=== PATIENT | male | born 1965 | race African-American/Black ===

== ENCOUNTER 2020-02-21 17:13 | Emergency (ER) | payer MEDICAID ==
[~2020-02-21] VITALS: Ht 177.8 cm; Wt 75.0 kg
[2020-02-21] MEDS ORDERED: ACETAMINOPHEN 325MG TABLET PO ONE (18:45)
[2020-02-21 19:34] LABS: BASOPHILS % 0.2 % (0.0-2.0); HEMATOCRIT. 37.2 % (42.0-52.0); HEMOGLOBIN. 12.7 g/dL (14.0-18.0); MEAN CORPUSCULAR VOLUME 96.7 fL (80.0-94.0); MEAN PLATELET VOLUME 6.6 fl (7.4-10.4); MONOCYTES % 11.1 % (2.0-8.0); NEUTROPHILS % 35.7 % (40.0-76.0); PLATELET 167 x1000/uL (130-400); RED BLOOD CELL COUNT 3.85 mill/uL (4.7-6.1); RED CELL DISTRIBUTION WIDTH 12.3 % (11.6-14.6)
[2020-02-21 19:39] LABS: CHLORIDE 105 mEq/L (98-107)
[2020-02-21 19:46] LABS: ETHANOL BLOOD < 10 mg/dL
[2020-02-21] MEDS ORDERED: OLANZAPINE 5MG TABLET PO STA (23:00)
[2020-02-21 23:35] LABS: CLARITY URINE CLEAR (CLEAR); COLOR URINE DARK YELLOW (YELLOW); KETONES URINE TRACE (NEGATIVE); LEUKOCYTE ESTERASE URINE 1+ (NEGATIVE); NITRITE URINE NEGATIVE (NEGATIVE); OCCULT BLOOD URINE NEGATIVE (NEGATIVE); PH URINE 5.5 (4.5-8.0); PROTEIN URINE TRACE (NEGATIVE); SPECIFIC GRAVITY URINE 1.028 (1.005-1.030)
[2020-02-21 23:43] LABS: *AMPHETAMINES SCREEN URINE PRESUMTIVE POSITIVE (NEGATIVE); *BARBITURATES SCREEN URINE NEGATIVE (NEGATIVE); *BENZODIAZEPINES SCREEN URINE NEGATIVE (NEGATIVE)
[2020-02-21 23:44] LABS: *COCAINE SCREEN URINE PRESUMTIVE POSITIVE (NEGATIVE); CANNABINOID URINE SCREEN NEGATIVE (NEGATIVE); METHADONE URINE SCREEN NEGATIVE (NEGATIVE); OPIATES URINE SCREEN NEGATIVE (NEGATIVE)
[2020-02-21 23:45] LABS: PHENCYCLIDINE URINE SCREEN NEGATIVE (NEGATIVE)
[2020-02-23] MEDS: OLANZAPINE 5MG TABLET PO SCH ×3 (09:28→21:00)
[2020-02-23] MEDS ORDERED: ACETAMINOPHEN 325MG TABLET PO ONE (10:00)
[2020-02-24 08:59] VITALS: BP 111/55
[2020-02-24] MEDS: OLANZAPINE 5MG TABLET PO SCH (09:00)
== END 2020-02-24 09:06 | disposition home or self-care (01) ==
LOC: ER 17:13
DX: R45.851 Suicidal ideations (principal); Z20.822 Contact with and (suspected) exposure to COVID-19
CPT/HCPCS: 36415; 80048; 80305; 80307; 80320; 80329; 81003; 85025; 87426; 99285; G0480

== ENCOUNTER 2020-07-08 22:35 | Emergency (ER) | payer MEDICAID ==
[~2020-07-08] VITALS: Ht 180.3 cm; Wt 81.0 kg
[2020-07-08 23:34] LABS: BASOPHILS % 0.3 % (0.0-2.0); EOSINOPHILS % 0.8 % (0.0-5.0); HEMATOCRIT. 36.6 % (42.0-52.0); HEMOGLOBIN. 12.7 g/dL (14.0-18.0); LYMPHOCYTES % 36.5 % (20.0-50.0); MEAN CORPUSCULAR HEMOGLOBIN 33.3 pg (28.0-32.0); MEAN CORPUSCULAR VOLUME 96.1 fL (80.0-94.0); MEAN PLATELET VOLUME 6.9 fl (7.4-10.4); NEUTROPHILS % 53.4 % (40.0-76.0); PLATELET 213 x1000/uL (130-400); RED BLOOD CELL COUNT 3.81 mill/uL (4.7-6.1); RED CELL DISTRIBUTION WIDTH 13.2 % (11.6-14.6)
[2020-07-08 23:40] LABS: CHLORIDE 104 mEq/L (98-107)
[2020-07-08 23:43] LABS: ETHANOL BLOOD < 10 mg/dL
[2020-07-08 23:45] LABS: CLARITY URINE CLEAR (CLEAR); COLOR URINE DARK YELLOW (YELLOW); KETONES URINE TRACE (NEGATIVE); LEUKOCYTE ESTERASE URINE TRACE (NEGATIVE); NITRITE URINE NEGATIVE (NEGATIVE); OCCULT BLOOD URINE NEGATIVE (NEGATIVE); PH URINE 5.5 (4.5-8.0); PROTEIN URINE 1+ (NEGATIVE); SPECIFIC GRAVITY URINE 1.036 (1.005-1.030)
[2020-07-08 23:56] LABS: *BENZODIAZEPINES SCREEN URINE NEGATIVE (NEGATIVE); *COCAINE SCREEN URINE NEGATIVE (NEGATIVE); METHADONE URINE SCREEN NEGATIVE (NEGATIVE)
[2020-07-08 23:57] LABS: *AMPHETAMINES SCREEN URINE PRESUMTIVE POSITIVE (NEGATIVE); *BARBITURATES SCREEN URINE NEGATIVE (NEGATIVE); CANNABINOID URINE SCREEN NEGATIVE (NEGATIVE); OPIATES URINE SCREEN PRESUMTIVE POSITIVE (NEGATIVE); PHENCYCLIDINE URINE SCREEN NEGATIVE (NEGATIVE)
[2020-07-09 03:44] VITALS: BP 104/68
== END 2020-07-09 06:09 | disposition home or self-care (01) ==
LOC: ER 22:49
DX: F43.21 Adjustment disorder with depressed mood (principal); R45.851 Suicidal ideations; G89.21 Chronic pain due to trauma; M54.2 Cervicalgia; F15.10 Other stimulant abuse, uncomplicated; Z87.828 Personal history of other (healed) physical injury and trauma
CPT/HCPCS: 36415; 80053; 80305; 80307; 80320; 80329; 81003; 85025; 99283; G0480

== ENCOUNTER 2020-11-30 01:16 | Emergency (ER) | payer MEDICAID ==
[~2020-11-30] VITALS: Ht 177.8 cm; Wt 81.0 kg
[2020-11-30 02:31] LABS: BASOPHILS % 0.3 % (0.0-2.0); EOSINOPHILS % 1.6 % (0.0-5.0); HEMATOCRIT. 35.2 % (42.0-52.0); HEMOGLOBIN. 11.9 g/dL (14.0-18.0); LYMPHOCYTES % 55.5 % (20.0-50.0); MEAN CORPUSCULAR HEMOGLOBIN 32.9 pg (28.0-32.0); MEAN CORPUSCULAR VOLUME 97.4 fL (80.0-94.0); MEAN PLATELET VOLUME 6.5 fl (7.4-10.4); MONOCYTES % 11.8 % (2.0-8.0); NEUTROPHILS % 30.8 % (40.0-76.0); PLATELET 196 x1000/uL (130-400); RED BLOOD CELL COUNT 3.61 mill/uL (4.7-6.1)
[2020-11-30 02:43] LABS: CHLORIDE 108 mEq/L (98-107)
[2020-11-30 02:47] LABS: ETHANOL BLOOD < 10 mg/dL
[2020-11-30 02:51] LABS: *COCAINE SCREEN URINE NEGATIVE (NEGATIVE)
[2020-11-30 02:52] LABS: *AMPHETAMINES SCREEN URINE PRESUMTIVE POSITIVE (NEGATIVE); *BARBITURATES SCREEN URINE NEGATIVE (NEGATIVE); METHADONE URINE SCREEN NEGATIVE (NEGATIVE); OPIATES URINE SCREEN NEGATIVE (NEGATIVE); PHENCYCLIDINE URINE SCREEN NEGATIVE (NEGATIVE)
[2020-11-30 02:53] LABS: *BENZODIAZEPINES SCREEN URINE NEGATIVE (NEGATIVE); CANNABINOID URINE SCREEN NEGATIVE (NEGATIVE)
[2020-11-30 02:55] LABS: CLARITY URINE CLEAR (CLEAR); COLOR URINE YELLOW (YELLOW); PROTEIN URINE TRACE (NEGATIVE)
[2020-11-30 02:56] LABS: KETONES URINE TRACE (NEGATIVE); LEUKOCYTE ESTERASE URINE NEGATIVE (NEGATIVE); NITRITE URINE NEGATIVE (NEGATIVE); OCCULT BLOOD URINE NEGATIVE (NEGATIVE)
[2020-12-01 11:59] VITALS: BP 130/83
== END 2020-12-01 12:35 | disposition home or self-care (01) ==
LOC: ER 01:16
DX: R45.851 Suicidal ideations (principal); R50.9 Fever, unspecified; F17.290 Nicotine dependence, other tobacco product, uncomplicated; F15.10 Other stimulant abuse, uncomplicated; F31.9 Bipolar disorder, unspecified; F20.9 Schizophrenia, unspecified; Z20.822 Contact with and (suspected) exposure to COVID-19
CPT/HCPCS: 36415; 71045; 80053; 80305; 80307; 80320; 80329; 81003; 83690; 85025; 87426; 99285; C9803; U0003; U0005; G0480

== ENCOUNTER 2021-01-09 02:14 | Emergency (ER) | payer MEDICAID ==
[~2021-01-09] VITALS: Ht 180.3 cm; Wt 82.0 kg
[2021-01-09 04:16] LABS: CLARITY URINE CLEAR (CLEAR); COLOR URINE YELLOW (YELLOW); KETONES URINE NEGATIVE (NEGATIVE); LEUKOCYTE ESTERASE URINE TRACE (NEGATIVE); NITRITE URINE NEGATIVE (NEGATIVE); OCCULT BLOOD URINE NEGATIVE (NEGATIVE); PH URINE 5.5 (4.5-8.0); PROTEIN URINE NEGATIVE (NEGATIVE); SPECIFIC GRAVITY URINE 1.017 (1.005-1.030)
[2021-01-09 04:29] LABS: *AMPHETAMINES SCREEN URINE PRESUMTIVE POSITIVE (NEGATIVE); *BARBITURATES SCREEN URINE NEGATIVE (NEGATIVE); *BENZODIAZEPINES SCREEN URINE NEGATIVE (NEGATIVE)
[2021-01-09 04:30] LABS: *COCAINE SCREEN URINE NEGATIVE (NEGATIVE); CANNABINOID URINE SCREEN NEGATIVE (NEGATIVE); METHADONE URINE SCREEN NEGATIVE (NEGATIVE); OPIATES URINE SCREEN NEGATIVE (NEGATIVE); PHENCYCLIDINE URINE SCREEN NEGATIVE (NEGATIVE)
[2021-01-09 04:49] LABS: BASOPHILS % 0.3 % (0.0-2.0); EOSINOPHILS % 1.1 % (0.0-5.0); HEMATOCRIT. 36.3 % (42.0-52.0); HEMOGLOBIN. 12.1 g/dL (14.0-18.0); LYMPHOCYTES % 59.1 % (20.0-50.0); MEAN CORPUSCULAR HEMOGLOBIN 33.1 pg (28.0-32.0); MEAN CORPUSCULAR VOLUME 98.7 fL (80.0-94.0); MEAN PLATELET VOLUME 6.9 fl (7.4-10.4); MONOCYTES % 7.8 % (2.0-8.0); NEUTROPHILS % 31.7 % (40.0-76.0); PLATELET 189 x1000/uL (130-400); RED BLOOD CELL COUNT 3.67 mill/uL (4.7-6.1); RED CELL DISTRIBUTION WIDTH 13.8 % (11.6-14.6)
[2021-01-09 04:55] LABS: CHLORIDE 105 mEq/L (98-107)
[2021-01-09 04:59] LABS: ETHANOL BLOOD < 10 mg/dL
[2021-01-09 14:39] VITALS: BP 133/85
== END 2021-01-09 14:50 | disposition home or self-care (01) ==
LOC: ER 02:14
DX: T43.621A Poisoning by amphetamines, accidental (unintentional), initial encounter (principal); R45.851 Suicidal ideations; F20.9 Schizophrenia, unspecified; R45.850 Homicidal ideations; I10 Essential (primary) hypertension; F15.10 Other stimulant abuse, uncomplicated; H54.7 Unspecified visual loss; R74.01 Elevation of levels of liver transaminase levels; Z98.890 Other specified postprocedural states; Z86.19 Personal history of other infectious and parasitic diseases; Y92.488 Other paved roadways as the place of occurrence of the external cause
CPT/HCPCS: 36415; 80053; 80305; 80307; 80320; 80329; 81003; 85025; 99285; G0480

== ENCOUNTER 2021-02-23 00:29 | Emergency (ER) | payer MEDICAID ==
[~2021-02-23] VITALS: Ht 180.3 cm; Wt 81.4 kg
[2021-02-23 04:00] VITALS: BP 108/69
[2021-02-23 04:34] LABS: BASOPHILS % 0.3 % (0.0-2.0); EOSINOPHILS % 2.1 % (0.0-5.0); HEMATOCRIT. 33.2 % (42.0-52.0); HEMOGLOBIN. 11.4 g/dL (14.0-18.0); LYMPHOCYTES % 55.7 % (20.0-50.0); MEAN CORPUSCULAR HEMOGLOBIN 33.4 pg (28.0-32.0); MEAN CORPUSCULAR VOLUME 97.2 fL (80.0-94.0); MEAN PLATELET VOLUME 6.5 fl (7.4-10.4); MONOCYTES % 13.4 % (2.0-8.0); NEUTROPHILS % 28.5 % (40.0-76.0); PLATELET 286 x1000/uL (130-400); RED BLOOD CELL COUNT 3.42 mill/uL (4.7-6.1); RED CELL DISTRIBUTION WIDTH 12.8 % (11.6-14.6)
[2021-02-23 04:44] LABS: CHLORIDE 110 mEq/L (98-107)
[2021-02-23 04:47] LABS: ETHANOL BLOOD < 10 mg/dL
== END 2021-02-23 07:15 | disposition left against medical advice (07) ==
LOC: ER 00:29
DX: R45.851 Suicidal ideations (principal); F15.10 Other stimulant abuse, uncomplicated; I10 Essential (primary) hypertension; Z20.822 Contact with and (suspected) exposure to COVID-19; Z86.59 Personal history of other mental and behavioral disorders
CPT/HCPCS: 36415; 80053; 80307; 80320; 80329; 85025; 87426; 99283; G0480

== ENCOUNTER 2021-05-13 09:27 | Emergency (ER) | payer MEDICAID ==
[~2021-05-13] VITALS: Ht 177.8 cm; Wt 80.0 kg
[2021-05-13 09:59] LABS: BASOPHILS % 0.2 % (0.0-2.0); EOSINOPHILS % 0.7 % (0.0-5.0); HEMOGLOBIN. 13.4 g/dL (14.0-18.0); LYMPHOCYTES % 42.7 % (20.0-50.0); MEAN CORPUSCULAR HEMOGLOBIN 33.5 pg (28.0-32.0); MEAN CORPUSCULAR VOLUME 97.6 fL (80.0-94.0); MEAN PLATELET VOLUME 6.6 fl (7.4-10.4); MONOCYTES % 8.1 % (2.0-8.0); NEUTROPHILS % 48.3 % (40.0-76.0); PLATELET 209 x1000/uL (130-400); RED CELL DISTRIBUTION WIDTH 13.3 % (11.6-14.6)
[2021-05-13] MEDS ORDERED: ONDANSETRON HCL 4MG TABLET PO ONE (10:00)
[2021-05-13] MEDS ORDERED: ACETAMINOPHEN 325MG TABLET PO ONE (10:00)
[2021-05-13 10:05] LABS: CHLORIDE 105 mEq/L (98-107)
[2021-05-13 11:17] VITALS: BP 137/68
[2021-05-13] MEDS ORDERED: TOPUD PO (11:28)
[2021-05-13] MEDS ORDERED: POLY17PO3 PO (11:28)
[2021-05-13] MEDS ORDERED: ONDANSETRON HCL 4MG TABLET PO NR (11:45)
== END 2021-05-13 12:50 | disposition home or self-care (01) ==
LOC: ER 09:27
DX: K59.00 Constipation, unspecified (principal); R10.13 Epigastric pain; I10 Essential (primary) hypertension; F20.9 Schizophrenia, unspecified; F10.21 Alcohol dependence, in remission
CPT/HCPCS: 36415; 74176; 80053; 85025; 99284

== ENCOUNTER 2021-05-25 22:44 | Emergency (ER) | payer MEDICAID ==
[~2021-05-25] VITALS: Ht 177.8 cm; Wt 81.0 kg
[~2021-05-25 22:44] MED LIST: POLY17PO3 PO; TOPUD PO
[2021-05-26 02:04] LABS: BASOPHILS % 0.1 % (0.0-2.0); EOSINOPHILS % 1.6 % (0.0-5.0); HEMATOCRIT. 35.8 % (42.0-52.0); HEMOGLOBIN. 12.1 g/dL (14.0-18.0); LYMPHOCYTES % 49.4 % (20.0-50.0); MEAN CORPUSCULAR HEMOGLOBIN 33.1 pg (28.0-32.0); MEAN CORPUSCULAR VOLUME 97.5 fL (80.0-94.0); MEAN PLATELET VOLUME 6.7 fl (7.4-10.4); MONOCYTES % 9.1 % (2.0-8.0); NEUTROPHILS % 39.8 % (40.0-76.0); PLATELET 192 x1000/uL (130-400); RED BLOOD CELL COUNT 3.67 mill/uL (4.7-6.1)
[2021-05-26 02:24] LABS: CHLORIDE 107 mEq/L (98-107)
[2021-05-26 02:28] LABS: ETHANOL BLOOD < 10 mg/dL
[2021-05-26 03:51] LABS: *AMPHETAMINES SCREEN URINE PRESUMTIVE POSITIVE (NEGATIVE); *BARBITURATES SCREEN URINE NEGATIVE (NEGATIVE); *BENZODIAZEPINES SCREEN URINE NEGATIVE (NEGATIVE); *COCAINE SCREEN URINE PRESUMTIVE POSITIVE (NEGATIVE); CANNABINOID URINE SCREEN NEGATIVE (NEGATIVE); METHADONE URINE SCREEN NEGATIVE (NEGATIVE); OPIATES URINE SCREEN NEGATIVE (NEGATIVE); PHENCYCLIDINE URINE SCREEN NEGATIVE (NEGATIVE)
[2021-05-26] MEDS ORDERED: IBUPROFEN 600MG TABLET PO ONE (04:00)
[2021-05-26] MEDS ORDERED: ONDANSETRON 4MG ODT PO ONE (04:00)
[2021-05-26] MEDS ORDERED: ARIPIPRAZOLE 5MG TABLET PO SCH (10:00)
[2021-05-27 08:45] VITALS: BP 130/85
== END 2021-05-27 09:13 ==
LOC: ER 22:44
DX: F20.9 Schizophrenia, unspecified (principal); M54.50 Low back pain, unspecified; R45.851 Suicidal ideations; I10 Essential (primary) hypertension; F10.21 Alcohol dependence, in remission; Z75.1 Person awaiting admission to adequate facility elsewhere; Z59.00 Homelessness unspecified; Z20.822 Contact with and (suspected) exposure to COVID-19; W10.8XXA Fall (on) (from) other stairs and steps, initial encounter; Y93.89 Activity, other specified; Y92.018 Other place in single-family (private) house as the place of occurrence of the external cause
CPT/HCPCS: 72100; 80053; 80305; 80307; 80320; 80329; 85025; 87426; 99285; C9803; Q0162; U0003; U0005; G0480

== ENCOUNTER 2021-06-08 22:31 | Emergency (ER) | payer MEDICAID ==
[~2021-06-08] VITALS: Ht 182.9 cm; Wt 93.0 kg
[2021-06-09 01:37] LABS: BASOPHILS % 0.2 % (0.0-2.0); EOSINOPHILS % 0.4 % (0.0-5.0); HEMATOCRIT. 35.2 % (42.0-52.0); HEMOGLOBIN. 12.2 g/dL (14.0-18.0); LYMPHOCYTES % 47.8 % (20.0-50.0); MEAN CORPUSCULAR HEMOGLOBIN 34.3 pg (28.0-32.0); MEAN CORPUSCULAR VOLUME 98.8 fL (80.0-94.0); MEAN PLATELET VOLUME 6.5 fl (7.4-10.4); MONOCYTES % 10.1 % (2.0-8.0); NEUTROPHILS % 41.5 % (40.0-76.0); PLATELET 192 x1000/uL (130-400); RED BLOOD CELL COUNT 3.56 mill/uL (4.7-6.1)
[2021-06-09 01:47] LABS: CHLORIDE 105 mEq/L (98-107)
[2021-06-09 01:52] LABS: ETHANOL BLOOD < 10 mg/dL
[2021-06-09 08:19] LABS: *AMPHETAMINES SCREEN URINE PRESUMTIVE POSITIVE (NEGATIVE); *BARBITURATES SCREEN URINE NEGATIVE (NEGATIVE); *BENZODIAZEPINES SCREEN URINE NEGATIVE (NEGATIVE); *COCAINE SCREEN URINE PRESUMTIVE POSITIVE (NEGATIVE); CANNABINOID URINE SCREEN NEGATIVE (NEGATIVE); METHADONE URINE SCREEN NEGATIVE (NEGATIVE); OPIATES URINE SCREEN NEGATIVE (NEGATIVE); PHENCYCLIDINE URINE SCREEN NEGATIVE (NEGATIVE)
[2021-06-09] MEDS ORDERED: ARIPIPRAZOLE 5MG TABLET PO NR (08:30)
[2021-06-09] MEDS ORDERED: LORAZEPAM 1MG TABLET PO ONE (23:00)
[2021-06-09] MEDS ORDERED: IBUPROFEN 600MG TABLET PO ONE (23:00)
[2021-06-10] MEDS: ARIPIPRAZOLE 5MG TABLET PO SCH (10:09)
[2021-06-11] MEDS: ARIPIPRAZOLE 5MG TABLET PO SCH (09:25)
[2021-06-11 11:54] VITALS: BP 130/58
== END 2021-06-11 12:14 ==
LOC: ER 22:31
DX: R45.850 Homicidal ideations (principal); I10 Essential (primary) hypertension; Z20.822 Contact with and (suspected) exposure to COVID-19; Z86.59 Personal history of other mental and behavioral disorders
CPT/HCPCS: 36415; 80053; 80305; 80307; 80320; 80329; 85025; 93005; 99285; C9803; U0003; U0005; G0480

== ENCOUNTER 2021-06-28 20:46 | Emergency (ER) | payer MEDICAID ==
[~2021-06-28] VITALS: Ht 180.3 cm; Wt 82.0 kg
[2021-06-28 23:12] LABS: CLARITY URINE CLEAR (CLEAR); COLOR URINE YELLOW (YELLOW); KETONES URINE NEGATIVE (NEGATIVE); LEUKOCYTE ESTERASE URINE NEGATIVE (NEGATIVE); NITRITE URINE NEGATIVE (NEGATIVE); OCCULT BLOOD URINE NEGATIVE (NEGATIVE); PH URINE >=9.0 (4.5-8.0); PROTEIN URINE 2+ (NEGATIVE); SPECIFIC GRAVITY URINE 1.023 (1.005-1.030)
[2021-06-28 23:57] LABS: HEMATOCRIT. 32.9 % (42.0-52.0); HEMOGLOBIN. 11.4 g/dL (14.0-18.0); MEAN CORPUSCULAR HEMOGLOBIN 33.6 pg (28.0-32.0); MEAN CORPUSCULAR VOLUME 97.1 fL (80.0-94.0); MEAN PLATELET VOLUME 6.7 fl (7.4-10.4); PLATELET 147 x1000/uL (130-400); RED BLOOD CELL COUNT 3.39 mill/uL (4.7-6.1)
[2021-06-29] LABS: CHLORIDE 102 mEq/L (98-107)
[2021-06-29] MEDS ORDERED: ACETAMINOPHEN 500MG TABLET PO SCH (00:30)
[2021-06-29] MEDS ORDERED: POTASSIUM CHLORIDE 20MEQ TABLET SR PO SCH (00:30)
[2021-06-29 00:39] VITALS: BP 142/87
[2021-06-29 04:47] LABS: PLATELET ESTIMATE NORMAL
== END 2021-06-29 00:43 | disposition home or self-care (01) ==
LOC: ER 20:46
DX: R10.30 Lower abdominal pain, unspecified (principal); M54.50 Low back pain, unspecified; F10.229 Alcohol dependence with intoxication, unspecified; I10 Essential (primary) hypertension; F20.9 Schizophrenia, unspecified; Y90.0 Blood alcohol level of less than 20 mg/100 ml
CPT/HCPCS: 36415; 74176; 80053; 81003; 85025; 93005; 99285

== ENCOUNTER 2021-08-24 21:56 | Emergency (ER) | payer MEDICAID ==
[~2021-08-24] VITALS: Ht 180.3 cm; Wt 85.5 kg
[2021-08-24] MEDS ORDERED: IBUPROFEN 600MG TABLET PO STA (23:36)
[2021-08-24] MEDS ORDERED: SODIUM CHLORIDE 0.9% 1,000 ML IV ONE (23:45)
[2021-08-25 00:15] LABS: BASOPHILS % 0.2 % (0.0-2.0); EOSINOPHILS % 1.5 % (0.0-5.0); HEMATOCRIT. 35.5 % (42.0-52.0); HEMOGLOBIN. 11.8 g/dL (14.0-18.0); LYMPHOCYTES % 54.1 % (20.0-50.0); MEAN CORPUSCULAR HEMOGLOBIN 33.2 pg (28.0-32.0); MEAN CORPUSCULAR VOLUME 99.5 fL (80.0-94.0); MEAN PLATELET VOLUME 6.7 fl (7.4-10.4); MONOCYTES % 12.5 % (2.0-8.0); NEUTROPHILS % 31.7 % (40.0-76.0); PLATELET 212 x1000/uL (130-400); RED BLOOD CELL COUNT 3.56 mill/uL (4.7-6.1); RED CELL DISTRIBUTION WIDTH 13.8 % (11.6-14.6)
[2021-08-25 00:21] LABS: CHLORIDE 102 mEq/L (98-107)
[2021-08-25 00:23] LABS: CLARITY URINE CLEAR (CLEAR); COLOR URINE DARK YELLOW (YELLOW); KETONES URINE TRACE (NEGATIVE); LEUKOCYTE ESTERASE URINE NEGATIVE (NEGATIVE); NITRITE URINE NEGATIVE (NEGATIVE); OCCULT BLOOD URINE NEGATIVE (NEGATIVE); PROTEIN URINE NEGATIVE (NEGATIVE); SPECIFIC GRAVITY URINE 1.033 (1.005-1.030)
[2021-08-25 00:30] LABS: ETHANOL BLOOD < 10 mg/dL
[2021-08-25 02:55] VITALS: BP 99/65
== END 2021-08-25 03:58 | disposition home or self-care (01) ==
LOC: ER 21:56
DX: R10.84 Generalized abdominal pain (principal); M54.89 Other dorsalgia; I10 Essential (primary) hypertension; F20.9 Schizophrenia, unspecified
CPT/HCPCS: 36415; 74176; 80053; 80320; 81003; 83605; 83690; 85025; 99284; J7030; G0480

== ENCOUNTER 2021-10-11 00:05 | Emergency (ER) | payer MEDICAID ==
[~2021-10-11] VITALS: Ht 180.3 cm; Wt 82.0 kg
[2021-10-11 02:44] LABS: BASOPHILS % 0.2 % (0.0-2.0); EOSINOPHILS % 0.7 % (0.0-5.0); HEMOGLOBIN. 12.6 g/dL (14.0-18.0); LYMPHOCYTES % 46.3 % (20.0-50.0); MEAN CORPUSCULAR HEMOGLOBIN 33.7 pg (28.0-32.0); MEAN CORPUSCULAR VOLUME 101.7 fL (80.0-94.0); MEAN PLATELET VOLUME 6.9 fl (7.4-10.4); MONOCYTES % 11.2 % (2.0-8.0); NEUTROPHILS % 41.6 % (40.0-76.0); PLATELET 194 x1000/uL (130-400); RED BLOOD CELL COUNT 3.73 mill/uL (4.7-6.1); RED CELL DISTRIBUTION WIDTH 14.1 % (11.6-14.6)
[2021-10-11 02:58] LABS: CHLORIDE 108 mEq/L (98-107)
[2021-10-11 03:05] LABS: ETHANOL BLOOD < 10 mg/dL
[2021-10-11 06:41] LABS: *AMPHETAMINES SCREEN URINE PRESUMTIVE POSITIVE (NEGATIVE); *BARBITURATES SCREEN URINE NEGATIVE (NEGATIVE); *BENZODIAZEPINES SCREEN URINE NEGATIVE (NEGATIVE); *COCAINE SCREEN URINE PRESUMTIVE POSITIVE (NEGATIVE); CANNABINOID URINE SCREEN NEGATIVE (NEGATIVE); METHADONE URINE SCREEN NEGATIVE (NEGATIVE); OPIATES URINE SCREEN NEGATIVE (NEGATIVE); PHENCYCLIDINE URINE SCREEN NEGATIVE (NEGATIVE)
[2021-10-11] MEDS: OLANZAPINE 5MG TABLET PO SCH ×2 (12:30→21:00)
[2021-10-12 07:59] VITALS: BP 134/82
== END 2021-10-12 07:55 | disposition home or self-care (01) ==
LOC: ER 00:19
DX: T40.5X1A Poisoning by cocaine, accidental (unintentional), initial encounter (principal); R45.851 Suicidal ideations; R45.850 Homicidal ideations; F14.151 Cocaine abuse with cocaine-induced psychotic disorder with hallucinations; Z20.822 Contact with and (suspected) exposure to COVID-19; F16.10 Hallucinogen abuse, uncomplicated; F12.10 Cannabis abuse, uncomplicated; F25.9 Schizoaffective disorder, unspecified; I10 Essential (primary) hypertension; Z91.51 Personal history of suicidal behavior; Y92.89 Other specified places as the place of occurrence of the external cause
CPT/HCPCS: 36415; 80053; 80305; 80307; 80320; 80329; 85025; 93005; 99285; C9803; U0003; U0005; G0480

== ENCOUNTER 2021-12-15 19:02 | Emergency (ER) | payer MEDICAID ==
[~2021-12-15] VITALS: Ht 180.3 cm; Wt 85.8 kg
[2021-12-15] MEDS ORDERED: IBUPROFEN 600MG TABLET PO ONE (23:15)
[2021-12-15] MEDS ORDERED: CEPH500C2 MT (23:19)
[2021-12-15] MEDS ORDERED: SULF1TAB48 MT (23:19)
[2021-12-15] MEDS ORDERED: IBUP-2029 MT (23:20)
[2021-12-15 23:58] VITALS: BP 133/98
== END 2021-12-16 | disposition home or self-care (01) ==
LOC: ER 19:08
DX: L05.01 Pilonidal cyst with abscess (principal); Z87.828 Personal history of other (healed) physical injury and trauma
CPT/HCPCS: 99283; Z7610

== ENCOUNTER 2022-02-09 20:55 | Emergency (ER) | payer MEDICAID ==
[~2022-02-09] VITALS: Ht 180.3 cm; Wt 110.0 kg
[~2022-02-09 20:55] MED LIST changes: +CEPH500C2 MT; +IBUP-2029 MT; +SULF1TAB48 MT
[2022-02-09 21:01] VITALS: BP 140/82
[2022-02-09 23:51] LABS: CHLORIDE 103 mEq/L (98-107)
[2022-02-10 00:21] LABS: BASOPHILS % 0.2 % (0.0-2.0); EOSINOPHILS % 0.8 % (0.0-5.0); HEMATOCRIT. 36.1 % (42.0-52.0); HEMOGLOBIN. 12.5 g/dL (14.0-18.0); LYMPHOCYTES % 50.9 % (20.0-50.0); MEAN CORPUSCULAR VOLUME 98.4 fL (80.0-94.0); MONOCYTES % 9.5 % (2.0-8.0); NEUTROPHILS % 38.6 % (40.0-76.0); RED BLOOD CELL COUNT 3.67 mill/uL (4.7-6.1); RED CELL DISTRIBUTION WIDTH 13.6 % (11.6-14.6)
[2022-02-10 02:24] LABS: PLATELET 196 x1000/uL (130-400)
[2022-02-10] MEDS ORDERED: ONDA4TAB50 MT (07:56)
[2022-02-10] MEDS ORDERED: IBUP-2029 MT (07:56)
[2022-02-10] MEDS ORDERED: ACETAMINOPHEN 325MG TABLET PO ONE (08:00)
== END 2022-02-10 09:16 | disposition left against medical advice (07) ==
LOC: ER 20:55
DX: R42 Dizziness and giddiness (principal); R11.0 Nausea; E11.9 Type 2 diabetes mellitus without complications; I10 Essential (primary) hypertension; Z88.8 Allergy status to other drugs, medicaments and biological substances; T36.8X5A Adverse effect of other systemic antibiotics, initial encounter; Y92.018 Other place in single-family (private) house as the place of occurrence of the external cause
CPT/HCPCS: 36415; 71045; 80053; 84484; 85025; 93005; 99285

== ENCOUNTER 2022-07-09 10:41 | Emergency (ER) | payer MEDICAID ==
[~2022-07-09] VITALS: Ht 172.7 cm; Wt 81.0 kg
[~2022-07-09 10:41] MED LIST changes: +ONDA4TAB50 MT
[2022-07-09 10:42] VITALS: BP 168/90
[2022-07-09] MEDS ORDERED: DIPH1TAB24 MT (13:19)
[2022-07-09] MEDS ORDERED: FAMO-135 MT (13:19)
== END 2022-07-09 13:49 | disposition home or self-care (01) ==
LOC: ER 10:48
DX: F60.0 Paranoid personality disorder (principal); R19.7 Diarrhea, unspecified; E11.9 Type 2 diabetes mellitus without complications; I10 Essential (primary) hypertension; Z98.890 Other specified postprocedural states
CPT/HCPCS: 99283

== ENCOUNTER 2022-08-09 00:52 | Emergency (ER) | payer MEDICAID ==
[~2022-08-09 00:52] MED LIST changes: +DIPH1TAB24 MT; +FAMO-135 MT
== END 2022-08-09 03:15 | disposition left against medical advice (07) ==
LOC: ER 00:52
DX: Z53.21 Procedure and treatment not carried out due to patient leaving prior to being seen by health care provider (principal)

== ENCOUNTER 2022-08-16 15:55 | Emergency (ER) | payer MEDICAID ==
[~2022-08-16] VITALS: Ht 167.6 cm; Wt 74.0 kg
[2022-08-16 16:04] VITALS: O2SAT 97
[2022-08-16] MEDS ORDERED: abilify (16:04)
[2022-08-16] MEDS ORDERED: gabapentin (16:04)
[2022-08-16] MEDS ORDERED: FAMOTIDINE 20MG/2ML VIAL IV STA (17:02)
[2022-08-16] MEDS ORDERED: MAGNESIUM/ALUMINUM HYDROXIDE/SIMETHICONE 30ML UDC PO STA (17:02)
[2022-08-16] MEDS ORDERED: SODIUM CHLORIDE 0.9% 1,000 ML IV ONE (17:15)
[2022-08-16 18:14] LABS: BASOPHILS % 0.1 % (0.0-2.0); EOSINOPHILS % 0.1 % (0.0-5.0); HEMATOCRIT. 37.1 % (42.0-52.0); HEMOGLOBIN. 12.7 g/dL (14.0-18.0); LYMPHOCYTES % 25.2 % (20.0-50.0); MEAN CORPUSCULAR HEMOGLOBIN 33.8 pg (28.0-32.0); MEAN CORPUSCULAR VOLUME 98.9 fL (80.0-94.0); MONOCYTES % 8.5 % (2.0-8.0); NEUTROPHILS % 66.1 % (40.0-76.0); PLATELET 232 x1000/uL (130-400); RED BLOOD CELL COUNT 3.75 mill/uL (4.7-6.1); RED CELL DISTRIBUTION WIDTH 12.9 % (11.6-14.6)
[2022-08-16 18:25] LABS: CHLORIDE 105 mEq/L (98-107)
[2022-08-16 18:41] LABS: ETHANOL BLOOD < 10 mg/dL (-10)
[2022-08-16] MEDS ORDERED: ACETAMINOPHEN 325MG TABLET PO ONE (20:00)
[2022-08-16 20:32] LABS: CLARITY URINE CLEAR (CLEAR); COLOR URINE YELLOW (YELLOW); KETONES URINE NEGATIVE (NEGATIVE); LEUKOCYTE ESTERASE URINE NEGATIVE (NEGATIVE); NITRITE URINE NEGATIVE (NEGATIVE); OCCULT BLOOD URINE NEGATIVE (NEGATIVE); PROTEIN URINE 1+ (NEGATIVE); SPECIFIC GRAVITY URINE 1.023 (1.005-1.030); UROBILINOGEN URINE 0.2 E.U./dL (0.2-1.0)
[2022-08-16 23:21] LABS: *AMPHETAMINES SCREEN URINE PRESUMTIVE POSITIVE (NEGATIVE); *BARBITURATES SCREEN URINE NEGATIVE (NEGATIVE); *BENZODIAZEPINES SCREEN URINE NEGATIVE (NEGATIVE); *COCAINE SCREEN URINE PRESUMTIVE POSITIVE (NEGATIVE); CANNABINOID URINE SCREEN NEGATIVE (NEGATIVE); METHADONE URINE SCREEN NEGATIVE (NEGATIVE); OPIATES URINE SCREEN NEGATIVE (NEGATIVE); PHENCYCLIDINE URINE SCREEN NEGATIVE (NEGATIVE)
[2022-08-17] VITALS: BP 158/97; PULSE 102; RESP 19; TEMP 98.6
== END 2022-08-17 00:49 | disposition home or self-care (01) ==
LOC: ER 15:55 → ENRESERV 23:36 → CANRESERV 23:36 → CANBEDREQ 23:56 → ER 08-17 00:49
DX: R00.0 Tachycardia, unspecified (principal); F15.10 Other stimulant abuse, uncomplicated; I10 Essential (primary) hypertension; E11.9 Type 2 diabetes mellitus without complications; Z86.59 Personal history of other mental and behavioral disorders; Z88.8 Allergy status to other drugs, medicaments and biological substances; Z79.899 Other long term (current) drug therapy; Z98.890 Other specified postprocedural states
CPT/HCPCS: 80053; 80305; 81003; 80320; 83880; 83690; 85025; 84484; 36415; 71045; 93005; 96361; 96374; 99285; J3490; J7030; Z7610 ×3; G0480

== ENCOUNTER 2022-08-17 01:03 | Emergency (ER) | payer MEDICAID ==
[~2022-08-17] VITALS: Ht 167.6 cm; Wt 74.0 kg
[~2022-08-17 01:03] MED LIST changes: +abilify; +gabapentin
[2022-08-17 02:15] VITALS: BP 179/98; PULSE 115; RESP 18; TEMP 98.2; O2SAT 100
== END 2022-08-17 07:30 | disposition home or self-care (01) ==
LOC: ER 01:03
DX: R45.851 Suicidal ideations (principal); F15.10 Other stimulant abuse, uncomplicated; I10 Essential (primary) hypertension; E11.9 Type 2 diabetes mellitus without complications; Z53.21 Procedure and treatment not carried out due to patient leaving prior to being seen by health care provider; Z00.00 Encounter for general adult medical examination without abnormal findings; Z88.8 Allergy status to other drugs, medicaments and biological substances; Z98.890 Other specified postprocedural states
CPT/HCPCS: 99281

== ENCOUNTER 2023-02-08 08:02 | Emergency (ER) | payer MEDICAID ==
[~2023-02-08] VITALS: Ht 175.3 cm; Wt 70.0 kg
[2023-02-08 08:14] VITALS: BP 160/92; PULSE 60; RESP 18; TEMP 98.2; O2SAT 98
== END 2023-02-08 08:49 | disposition left against medical advice (07) ==
LOC: ER 08:02
DX: M54.9 Dorsalgia, unspecified (principal); F15.10 Other stimulant abuse, uncomplicated; I10 Essential (primary) hypertension; E11.9 Type 2 diabetes mellitus without complications; Z88.8 Allergy status to other drugs, medicaments and biological substances; Z79.899 Other long term (current) drug therapy; Z98.890 Other specified postprocedural states
CPT/HCPCS: 99283